=== PATIENT | female | born 1980 | race Caucasian/White ===

== ENCOUNTER 2016-11-09 15:12 | Emergency (ER) | payer BC ==
[2016-11-09 15:58] VITALS: BP 117/79
--- NOTE | 2016-11-09 16:13 | UC ---
General HPI - HPI Summary HPI Summary: 36 y/o female c/o sinus congestion located in the frontal and maxillary sinuses , chest tightness, nonproductive cough, post-nasal drip, and bronchospasm x 5 days. Night time cough keeping the patient awake at night. Reports of history of seasonal allergies. - History of Current Complaint Chief Complaint: UCRespiratory Stated Complaint: SINUS AND CHEST CONGESTION Time Seen by Provider: 11/09/16 16:04 Hx Obtained From: Patient Onset/Duration: Gradual Onset Associated Signs & Symptoms: Positive: Headache. Negative: SOB, Wheezing - Allergy/Home Medications Allergies/Adverse Reactions: Allergies Allergy/AdvReac Type Severity Reaction Status Date / Time Amoxicillin [From Augmentin] Allergy Blisters Verified 11/09/16 15:37 Clavulanic Acid Allergy Blisters Verified 11/09/16 15:37 [From Augmentin] Seasonal Environmental Allergy Intermediate Difficulty Uncoded 11/09/16 15:37 Allergies Breathing/Wheezing PMH/Surg Hx/FS Hx/Imm Hx Previously Healthy: Yes - seasonal allergies Endocrine History Of: Denies: Diabetes, Thyroid Disease Cardiovascular History Of: Denies: Cardiac Disorders, Hypertension Respiratory History Of: Denies: COPD, Asthma GI/ History Of: Denies: Ulcer - Surgical History Surgical History: Yes Surgery Procedure, Year, and Place: [place] teeth extractions, appy - Family History Known Family History: Positive: Cardiac Disease - Mother elevated cholesterol Maternal grandmother: CVA - Social History Occupation: Employed Full-time Alcohol Use: Occasionally Substance Use Type: None Smoking Status (MU): Former Smoker Length of Time of Smoking/Using Tobacco: 10 years When Did the Patient Quit Smoking/Using Tobacco: 10 years Household Exposure Type: Cigarettes - Immunization History Most Recent Influenza Vaccination: never Most Recent Tetanus Shot: 1996 Tetanus, Diphtheria Vaccination: No Vaccination Up to Date: Yes Review of Systems Constitutional: Negative Skin: Negative Eyes: Negative ENT: Nasal Discharge Respiratory: Cough Cardiovascular: Negative Gastrointestinal: Negative Genitourinary: Negative Motor: Negative Neurovascular: Negative Musculoskeletal: Negative Neurological: Headache Psychological: Negative All Other Systems Reviewed And Are Negative: Yes Physical Exam Triage Information Reviewed: Yes Appearance: Well-Appearing, No Pain Distress Vital Signs: Initial Vital Signs Temp 99.3 F 11/09/16 15:56 Pulse 83 11/09/16 15:56 Resp 16 11/09/16 15:56 BP 117/79 11/09/16 15:56 Pulse Ox 98 11/09/16 15:56 Vital Signs Reviewed: Yes Eye Exam: Normal Eyes: Positive: Conjunctiva Clear ENT: Positive: Hearing grossly normal, Pharynx normal, Nasal congestion, Nasal drainage - Reddened inflammed nasal turbinates, TMs normal - Sunken in left TM, all structures visable, Other: - Bilateral maxillary shiners Dental Exam: Normal Neck exam: Normal Neck: Positive: Supple, Nontender, No Lymphadenopathy Respiratory: Positive: Chest non-tender, Lungs clear, Normal breath sounds, No respiratory distress, Decreased breath sounds - Posterior lobes Cardiovascular: Positive: RRR, No Murmur, Pulses Normal Abdomen Description: Positive: Nontender, No Organomegaly, Soft Bowel Sounds: Positive: Present Musculoskeletal: Positive: Strength Intact, ROM Intact Neurological: Positive: Alert, Muscle Tone Normal, Fatigued Psychological Exam: Normal Skin Exam: Normal Course/Dx - Differential Dx - Multi-Symptom Provider Diagnoses: Upper respiratory Infection Discharge - Discharge Plan Condition: Stable Disposition: HOME Prescriptions: Albuterol HFA INHALER* [Ventolin HFA Inhaler*] 1 - 2 puff INH Q4H PRN #1 mdi PRN Reason: wheeze, cough Benzonatate CAP* [Tessalon CAP*] 100 mg PO TID PRN #30 cap PRN Reason: Cough Guaifenesin-Codeine [Guaiatussin AC] 5 - 10 ml PO Q6H #120 ml MDD 40mL Patient Education Materials: Upper Respiratory Infection (ED) Forms: *Work Release Referrals: Jairo Mays MD [Primary Care Provider] - If Needed
== END 2016-11-09 16:45 | disposition home or self-care (01) ==
LOC: UCEAST 15:12
DX: J06.9 Acute upper respiratory infection, unspecified (principal); Z88.1 Allergy status to other antibiotic agents; Z88.0 Allergy status to penicillin; Z87.891 Personal history of nicotine dependence
CPT/HCPCS: 99212; G0463

== ENCOUNTER 2018-10-27 14:53 | Emergency (ER) | payer BC ==
[2018-10-27 15:09] VITALS: BP 112/78
--- NOTE | 2018-10-27 15:47 | UC ---
Ear Complaint HPI - HPI Summary HPI Summary: 37 y/o female with long standing h/o seasonal allergies, sinusitis presents with ringing in ears- high pitched, humming sound, was intermittent but becoming more frequent worse with lying down, x 2-3 weeks. + headache sometime sinus sometimes pressure throughout head, no fever, chills. no prior occurrences. - History of Current Complaint Chief Complaint: UCEar Stated Complaint: RINGING IN EARS Time Seen by Provider: 10/27/18 15:19 Hx Obtained From: Patient Hx Last Menstrual Period: [id number] ?: No Onset/Duration: Sudden Onset Severity Initially: Mild Severity Currently: Moderate Pain Intensity: 2 Pain Scale Used: 0-10 Numeric - Allergies/Home Medications Allergies/Adverse Reactions: Allergies Allergy/AdvReac Type Severity Reaction Status Date / Time amoxicillin [From Augmentin] Allergy Blisters Verified 10/27/18 15:09 clavulanic acid Allergy Blisters Verified 10/27/18 15:09 [From Augmentin] Seasonal Environmental Allergy Intermediate Difficulty Uncoded 10/27/18 15:09 Allergies Breathing/Wheezing Home Medications: Home Medications Acetaminophen/Diphenhydramine [Tylenol Pm Ex-Strength Caplet] 1 each PO Q8H PRN 10/27/18 [History Confirmed 10/27/18] Fexofenadine/Pseudoephedrine [Connie-D 24 Hour Tablet] 1 tab PO DAILY 10/27/18 [History Confirmed 10/27/18] Fluticasone NASAL SPRAY 50MCG* [Flonase NASAL SPRAY 50MCG*] 2 spray BOTH NARES DAILY PRN 10/27/18 [History Confirmed 10/27/18] Ibuprofen TAB* [Motrin TAB* 600 MG] 600 mg PO Q8H PRN 10/27/18 [History Confirmed 10/27/18] Pseudoephedrine HCL ER TAB* [Sudafed 12 Hour*] 120 mg PO BID PRN 10/27/18 [ History Confirmed 10/27/18] guaiFENesin ER TAB [Mucinex*] 600 mg PO BID PRN 10/27/18 [History Confirmed 08/04] PMH/Surg Hx/FS Hx/Imm Hx Previously Healthy: Yes - seasonal allergies - Surgical History Surgical History: Yes Surgery Procedure, Year, and Place: [place] teeth extractions, appy - Family History Known Family History: Positive: Cardiac Disease - Mother elevated cholesterol Maternal grandmother: CVA - Social History Alcohol Use: Weekly Substance Use Type: None Smoking Status (MU): Former Smoker Length of Time of Smoking/Using Tobacco: 10 years Have You Smoked in the Last Year: No When Did the Patient Quit Smoking/Using Tobacco: 2002 Household Exposure Type: Cigarettes - Immunization History Most Recent Influenza Vaccination: never Most Recent Tetanus Shot: 1996 Hx Tetanus, Diphtheria Vaccination: No Vaccination Up to Date: Yes Review of Systems All Other Systems Reviewed And Are Negative: Yes ENT: Positive: Ear Ache, Sinus Congestion, Sinus Pain/Tenderness, Other - ringing in ears Is Patient Immunocompromised?: No Physical Exam Triage Information Reviewed: Yes Appearance: Well-Appearing, No Pain Distress, Well-Nourished Vital Signs: Initial Vital Signs Temp 98.6 F 10/27/18 15:02 Pulse 77 10/27/18 15:02 Resp 16 10/27/18 15:02 BP 112/78 10/27/18 15:02 Pulse Ox 100 10/27/18 15:02 Vital Signs Reviewed: Yes Eyes: Positive: Conjunctiva Clear ENT: Positive: Pharynx normal, TMs normal - fluid behind TM b/l, no erythema, Sinus tenderness - b/l frontal, submand, Uvula midline, Other - + TTP periauricular b/l unalbe to re-create symptoms iwth head motions. Negative: Tonsillar swelling, Tonsillar exudate Neck: Positive: Supple, Nontender, No Lymphadenopathy. Negative: Nuchal Rigidity Respiratory: Positive: Chest non-tender, Lungs clear, Normal breath sounds, No respiratory distress, No accessory muscle use. Negative: Crackles, Rhonchi, Stridor, Wheezing Cardiovascular: Positive: RRR, No Murmur Psychological Exam: Normal Psychological: Positive: Other: - normal gait Skin Exam: Normal Ear Complaint Course/Dx - Course Course Of Treatment: tinnitus possibly associated with sinusitis, antihistamines , azithromycin abx, follow up with ENT - Differential Dx/Diagnosis Differential Diagnosis/HQI/PQRI: Otitis Externa, Otitis Media Provider Diagnosis: Sinusitis, Tinnitus Discharge - Sign-Out/Discharge Documenting (check all that apply): Patient Departure All imaging exams completed and their final reports reviewed: No Studies - Discharge Plan Condition: Good Disposition: HOME Prescriptions: DOXYcycline CAP(*) [DOXYcycline 100MG CAP(*)] 100 mg PO BID #20 cap Patient Education Materials: Sinusitis (ED), Tinnitus (ED) Referrals: Isidro Jacobsen MD [Primary Care Provider] - Jatin Jennings MD [Medical Doctor] - Additional Instructions: - Antibiotics as prescribed for sinus symptoms - ANtihistamines- Allerga daily and benadryl at night to help "dry" up sinuses - Increase fluid intake - Follow up with ENT - Billing Disposition and Condition Condition: GOOD Disposition: Home
== END 2018-10-27 15:58 | disposition home or self-care (01) ==
LOC: UCEAST 14:53
DX: J32.9 Chronic sinusitis, unspecified (principal); H93.19 Tinnitus, unspecified ear; Z87.891 Personal history of nicotine dependence; Z88.0 Allergy status to penicillin; Z88.1 Allergy status to other antibiotic agents; Z91.09 Other allergy status, other than to drugs and biological substances
CPT/HCPCS: 99212; G0463